=== PATIENT | male | born 1975 | race Caucasian/White ===

== ENCOUNTER 2017-11-14 17:32 | Emergency (ER) | payer OTHER ==
[~2017-11-14] VITALS: Ht 175.3 cm; Wt 68.0 kg
--- NOTE | 2017-11-14 17:40 | ED GENERAL ADULT ---
See Addendum History of Present Illness General Chief Complaint: Altered Mental Status Stated Complaint: AMS Source: EMS, police Exam Limitations: intoxication Vital Signs & Intake/Output Vital Signs & Intake/Output Vital Signs Date Time Temp Pulse Resp B/P B/P Pulse O2 O2 Flow FiO2 Mean Ox Delivery Rate 11/14 1950 98.8 98 16 140/90 97 Room Air 11/14 1753 96 Room Air 11/14 1741 98.7 116 18 142/93 96 Room Air Triage Note: PT BIBA AFTER BEING FOUND IN A CAR ON THE SIDE OF THE ROAD, DOORS OPEN, UNRESPONSIVE ON PD ARRIVAL. ON EMS ARRIVAL ON SCENE, PT AWAKE, APPEARED ALTERED, EYES OPEN BUT UNAWAKE TO PLACE, TIME, SITUATION. DIAPHORETIC, TACHYCARDIC, AND HYPERTENSIVE ON SCENE. PT ARRIVES AWAKE AND COOPERATIVE. DOES NOT KNOW THAT HE IS IN [place] HE WAS EN ROUTE TO [place] FROM [place], [place]. Triage Nurses Notes Reviewed? yes HPI: Patient was found intoxicated in a car. Patient rates it drinking alcohol but denies any other drug use. Patient denies any suicidal or homicidal ideations. Patient has no current complaints. (Monster PERALES,Kendall Murphy) Past History Medical History Any Pertinent Medical History? none Surgical History Surgical History: non-contributory Psychosocial History Tobacco Use: Never used ETOH Use: heavy use Illicit Drug Use: denies illicit drug use Family History Hx Contributory? No (Kendall Hook MD) Review of Systems Review of Systems Constitutional: Reports: see HPI. (Kendall Hook MD) Physical Exam Physical Exam General Appearance: awake, intoxicated Head: atraumatic, normal appearance Eyes: Bilateral: PERRL, other (SLUGGISH). Ears, Nose, Throat: normal pharynx, normal ENT inspection, hearing grossly normal Neck: normal inspection, supple, full range of motion Respiratory: normal breath sounds, chest non-tender, no respiratory distress, lungs clear Cardiovascular: regular rate/rhythm, normal peripheral pulses Gastrointestinal: normal bowel sounds, soft, non-tender Back: normal inspection, normal range of motion Extremities: normal inspection, normal capillary refill, normal range of motion, no edema Neurologic/Psych: awake Skin: intact, normal color, warm/dry Core Measures ACS in differential dx? No CVA/TIA Diagnosis: No Sepsis Present: No Sepsis Focused Exam Completed? No (Monster PERALES,eKndall Murphy) Progress Differential Diagnoses I considered the following diagnoses in my evaluation of the patient: [ Intoxication] Plan of Care: Orders Procedure Date/time Status Continuous Observation Monitor 11/14 175 Active URINE DRUGS OF ABUSE 11/14 173 Complete ETHANOL 11/14 173 Complete COMPREHENSIVE METABOLIC PANEL 11/14 1738 Complete CBC WITHOUT DIFFERENTIAL 11/14 1738 Complete Laboratory Tests 11/14/17 1810: Urine Opiates Screen < 100, Methadone Screen < 40, Barbiturate Screen < 60, Ur Phencyclidine Scrn < 6.00, Amphetamines Screen < 100, U Benzodiazepines Scrn < 85, Urine Cocaine Screen < 50, Urine Cannabis Screen < 5.00 11/14/17 1800: Anion Gap 12, Estimated GFR > 60, BUN/Creatinine Ratio 6.7 L, Glucose 128 H, Calcium 10.2, Total Bilirubin 0.6, AST 166 H, ALT 63, Alkaline Phosphatase 75, Total Protein 8.6 H, Albumin 5.0, Globulin 3.6, Albumin/Globulin Ratio 1.4, CBC w Diff NO MAN DIFF REQ, RBC 4.59 L, MCV 101.1 H, MCH 34.6 H, MCHC 34.3, RDW 13.4, MPV 7.5, Gran % 55.3, Lymphocytes % 38.0, Monocytes % 4.6, Eosinophils % 1.2, Basophils % 0.9, Absolute Granulocytes 3.8, Absolute Lymphocytes 2.6, Absolute Monocytes 0.3, Absolute Eosinophils 0.1, Absolute Basophils 0.1, Serum Alcohol 485.0 Initial ED EKG: none Hand-Off Endorsed To: Vahe Morris DO Endorsed Time: 1899 Pending: other (SOBREITY) (Monster PERALES,Kendall Murphy) Departure Departure Disposition: STILL A PATIENT Condition: Stable Clinical Impression Primary Impression: Intoxication Departure Forms: Customer Survey General Discharge Information (Monster PERALES,Kendall Murphy) Departure Comments 11/14/17 8:14 PM The patient was signed out to me by Dr. Hook for alcohol intoxication. Currently he is awake alert and oriented 3. He denies any complaints. He had an alcohol level greater than 400. (Vahe Morris DO) Critical Care Note Critical Care Note Critical Care Time: non-applicable (Monster PERALES,Kendall Murphy)
[2017-11-14 18:41] LABS: ABSOLUTE BASOPHIL COUNT 0.1 /CUMM (0.0-0.2); ABSOLUTE EOSINOPHIL COUNT 0.1 /CUMM (0.0-0.7); ABSOLUTE GRANULOCYTE CT 3.8 /CUMM (1.4-6.5); ABSOLUTE LYMPH COUNT 2.6 /CUMM (1.2-3.4); ABSOLUTE MONOCYTE COUNT 0.3 /CUMM (0.10-0.60); BASOPHIL % 0.9 % (0.0-2.0); EOSINOPHIL % 1.2 % (0-5); GRANULOCYTE % 55.3 % (42.2-75.2); HEMATOCRIT 46.4 % (42-52); MEAN CORPUSCULAR HGB 34.6 PG (27.0-31.0); MEAN CORPUSCULAR HGB CONC 34.3 G/DL (33.0-37.0); MEAN CORPUSCULAR VOLUME 101.1 FL (80.0-94.0); MEAN PLATELET VOLUME 7.5 FL (7.4-10.4); PLATELET COUNT 241 /CUMM (130-400); RBC DISTRIBUTION WIDTH 13.4 % (11.5-14.5); RED BLOOD CELL CT 4.59 /CUMM (4.70-6.10); WHITE BLOOD CELL COUNT 6.9 /CUMM (4.8-10.8)
[2017-11-15 07:57] VITALS: BP 134/78
== END 2017-11-15 09:06 ==
LOC: ERH 17:32 → CANBEDREQ 21:32 → ERH 11-15 09:06
PROVIDERS: Emergency Medicine
DX: F10.129 Alcohol abuse with intoxication, unspecified (principal)
CPT/HCPCS: 80307; G0480